=== PATIENT | female | born 1950 | race Caucasian/White ===

== ENCOUNTER → 2018-11-13 | Outpatient (CLI) | payer MEDICARE, OTHER | LOC: M.RAD 15:33 | DX: R07.9 Chest pain, unspecified (principal); Z88.5 Allergy status to narcotic agent; Z88.2 Allergy status to sulfonamides; Z88.0 Allergy status to penicillin ==

== ENCOUNTER → 2018-11-18 | Outpatient (CLI) | payer MEDICARE, OTHER ==
--- NOTE | 2018-11-18 15:10 | 2DMMODE ---
[place] [address] 2 D/M-MODE ECHOCARDIOGRAM Name: KRYSTYNA ARIAS Room: [facility]#: [id number] Admission: 11/18/18 Attend Phys: Rubén Gaviria, Discharge: Date of : 52 Date of Service: 11/18/18 1510 Report #: [id number] THIS REPORT FOR: //name// APPROVED REPORT Study performed: 11/18/2018 10:51:07 EXAM: Comprehensive 2D, Doppler, and color-flow Echocardiogram Patient Location: Out-Patient BSA: 1.84 HR: 90 bpm BP: 149/90 mmHg Other Information Study Quality: Fair Indications Dyspnea Chest Pain 2D Dimensions IVSd: 12.93 (7-11mm) LVOT Diam: 20.70 (18-24mm) LVDd: 37.26 mm PWd: 15.11 (7-11mm) Ascending Ao: 29.43 (22-36mm) LVDs: 26.25 (25-40mm) Aortic Root: 27.16 mm Volumes Left Atrial Volume (Systole) LA ESV Index: 10.90 mL/m2 Aortic Valve AoV Peak Kane.: 1.80 m/s AO Peak Gr.: 13.00 mmHg LVOT Max P.24 mmHg AO Mean Gr.: 6.69 mmHg LVOT Mean P.15 mmHg LVOT Max V: 1.03 m/s AO V2 VTI: 32.64 cm LVOT Mean V: 0.67 m/s ESPERANZA (VTI): 2.28 cm2 LVOT V1 VTI: 22.09 cm Mitral Valve E/A Ratio: 0.54 MV Decel. Time: 261.06 ms MV E Max Kane.: 0.61 m/s MV PHT: 75.[place] [address] 2 D/M-MODE ECHOCARDIOGRAM Name: KRYSTYNA ARIAS Room: [facility]#: [id number] Admission: 11/18/18 Attend Phys: Rubén Gaviria, Discharge: Date of : 52 Date of Service: 11/18/18 1510 Report #: [id number] MVA (PHT): 2.91 cm2 TDI E/Lateral E': 7.63 E/Medial E': 5.55 Medial E' Kane.: 0.11 m/s Lateral E' Kane.: 0.08 m/s Pulmonary Valve PV Peak Kane.: 1.43 m/s PV Peak Gr.: 8.21 mmHg Left Ventricle The left ventricle is normal size. There is normal LV segmental wall motion. Mild concentric left ventricular hypertrophy. Left ventricular systolic function is normal. The left ventricular ejection fraction is within the normal range. LVEF is 55-60%. Grade I - abnormal relaxation pattern. Right Ventricle The right ventricle is normal size. The right ventricular systolic function is normal. Atria The left atrium size is normal. The right atrium size is normal. Aortic Valve The aortic valve is normal in structure. No aortic regurgitation is present. There is no aortic valvular stenosis. Mitral Valve The mitral valve is normal in structure. There is no mitral valve regurgitation noted. No evidence of mitral valve stenosis. Tricuspid Valve The tricuspid valve is normal in structure. There is no tricuspid valve regurgitation noted. Pulmonic Valve Pulmonic valve is not well visualized. There is no pulmonic valvular regurgitation. Great Vessels The aortic root is normal in size. IVC is normal in size and collapses >50% with inspiration[place] [address] 2 D/M-MODE ECHOCARDIOGRAM Name: KRYSTYNA ARIAS CORY Room: [facility]#: [id number] Admission: 11/18/18 Attend Phys: Rubén Gaviria, Discharge: Date of : 52 Date of Service: 11/18/18 1510 Report #: [id number] There is no pericardial effusion. <Conclusion> LVEF is 55-60%. Mild concentric left ventricular hypertrophy. <ELECTRONICALLY SIGNED> By: Rubén Landis MD, [facility] [id number] Rubén Landis MD, FACC /INF
--- NOTE | 2018-11-18 16:27 | CARDNUC ---
[place] [address] CARDIAC NUCLEAR IMAGING REPORT Name: KRYSTYNA ARIAS Room: [facility]#: [id number] Admission: 11/18/18 Attend Phys: Rubén Gaviria, Discharge: Date of : 52 Date of Service: 11/18/18 1627 Report #: [id number] THIS REPORT FOR: //name// APPROVED REPORT Imaging Protocol: Rest Tc-99m/Stress Tc-99m 1 day Study performed: 11/18/2018 08:30:00 Indication: Chest pain, Dyspnea Patient Location: Out-Patient Stress Tech: Melida Valencia Stress Nurse: Erin Wilson RN NM Tech:ESDRAS Hu Ht: 5 ft 7 in Wt: 160 lbs BSA: 1.84 m2 BMI: 25.05 Medical History Medical History: Angina, CKD, Current Smoker, Fatigue, SOB, No history of CAD. Medications: None Allergies: codeine, PCN, Sulfa ABT. Cardiac Risk Factors: Age, Current Smoker, SOB. Previous Cardiac Procedures: None Pretest Chest Pain Characteristics: No chest pain Exercise History: Indeterminate Physical Disabilities: SOA Meds Held (24 hrs): NONE Resting Data Rest SPECT myocardial perfusion imaging was performed in supine position 30 minutes following the intravenous injection of 10.4 mCi of Tc-99m Sestamibi. Time of rest injection: 09:10 Date: 11/18/2018 The images were gated to evaluate regional wall motion and calculate left ventricular ejection fraction. Administration Route: IV Administration Site: Left AC Exercise Stress At peak stress, the patient was injected intravenously with 34.3mCi of Tc-99m Sestamibi. Time of stress injection: 10:45 Administration Route: IV Administration Site: [place] [address] CARDIAC NUCLEAR IMAGING REPORT Name: KRYSTYNA ARIAS Room: [facility]#: [id number] Admission: 11/18/18 Attend Phys: Rubén Gaviria, Discharge: Date of : 52 Date of Service: 11/18/18 1627 Report #: [id number] Heart Rate at time of stress injection: 136 bpm. Patient continued to exercise for 1 minute(s). Gated Stress SPECT was performed 40 minutes after stress injection. The images were gated to evaluate regional wall motion and calculate left ventricular ejection fraction. Prone imaging was performed. Stress Test Details Stress Test: Exercise stress testing was performed using a Timur protocol. HR Max Heart Rate (APMHR): 153 bpm Resting HR: 90 bpm Target HR (85% APMHR): 130 bpm Max HR Achieved: 136 bpm % of APMHR: 88 Recovery HR: 113 bpm HR response to stress: Normal HR response to stress BP Resting BP: 149/90 mmHg Max BP: 198/89 mmHg Recovery BP: 152/71 mmHg BP response to stress: Normal blood pressure response to stress. ECG Resting ECG: nsr Stress ECG: nsr ST Change: none Arrhythmia: no st abn Recovery ECG: nsr Recovery ST Change: none Recovery Arrhythmia: none Clinical Reason for Termination: Completed protocol, TARGET HR ACHIEVED. Stress Symptoms: Dyspnea, Fatigue. Exercise duration: 6 min 37 sec Exercise capacity: 7.05 METs Nurse Comments 68 year old female presented with recent HX of CP and SOA and is a current smoker. Patient became very SOA during Timur protocol but completed test as needed. Recovery unremarkable. Patient was escorted by staff to Nuclear Medicine for images. [place] [address] CARDIAC NUCLEAR IMAGING REPORT Name: ARIAS,KRYSTYNA RAY Room: [facility]#: [id number] Admission: 11/18/18 Attend Phys: Rubén Gaviria, Discharge: Date of : 52 Date of Service: 11/18/18 1627 Report #: [id number] complaints at that time. Isotope injected at 5:15 at 85% HR. Stress ECG Conclusion nsr Study Quality Study: Good Artifact: No artifact Lung Uptake: Normal Study Data SSS: 0 SRS: 0 SDS: 0 TID = 0.99. Perfusion Review of rest data reveals normal perfusion, without perfusion defects.Imaging obtained following exercise stress demonstrate a similar, uniform uptake of tracer without defects. Prone imaging was normal. LVEDV is normal.No segental wall motion abnormality seen. Wall Motion normal in all segments Nuclear Conclusion ECG Findings: negative for ischemia Clinical Findings: negative for ischemia Nuclear Findings: negative for ischemia Exercise Capacity: normal Left Ventricular Function: normal Risk Study: low Negative perfusion nuclear stress test for ischemia or infarct. <Conclusion> nsr <ELECTRONICALLY SIGNED> By: Edgar Reed MD, FACC 11/18/18 1627 [id number] Edgar Reed MD, FACC /INF
== END ==
LOC: M.CRD 11-14 07:55 → M.NUC 08:37 → M.CRD 11:00 → M.NUC 11-20 08:00 → M.CRD 11-20 08:00
DX: I51.7 Cardiomegaly (principal); R53.82 Chronic fatigue, unspecified; N18.9 Chronic kidney disease, unspecified; Z87.891 Personal history of nicotine dependence